=== PATIENT | male | born 1985 | race African-American/Black ===

== ENCOUNTER 2022-03-26 23:56 | Emergency (ER) | payer SELFPAY ==
[~2022-03-26] VITALS: Ht 182.9 cm; Wt 77.1 kg
[2022-03-27 00:55] LABS: CLARITY,URINE SL CLOUDY (CLEAR); COLOR,URINE AMBER (YELLOW); KETONES,URINE TRACE (NEGATIVE); LEUKOCYTE ESTERASE ,URINE NEGATIVE (NEGATIVE); NITRITE,URINE POSITIVE (NEGATIVE); PROTEIN,URINE DIPSTICK NEGATIVE (NEGATIVE); URINE UROBILINOGEN 1 mg/dL (0.2 - 1)
[2022-03-27 01:03] LABS: AMORPHOUS SEDIMENT,URINE MANY (FEW); BACTERIA,URINE MODERATE /HPF; EPITHELIAL CELLS,URINE RARE /LPF; RBC,URINE 0-5 /HPF (0-5); WBC,URINE (MAN) 0-5 /HPF (0-5)
== END 2022-03-27 01:13 | disposition home or self-care (01) ==
LOC: ER 03-27 00:07
DX: R30.0 Dysuria (principal); N39.0 Urinary tract infection, site not specified; F17.210 Nicotine dependence, cigarettes, uncomplicated
CPT/HCPCS: 81001; 99282